=== PATIENT | female | born 1950 | race Caucasian/White ===

== ENCOUNTER 2021-09-14 10:03 | Emergency (ER) | payer OTHER, MEDICAID ==
[~2021-09-14] VITALS: Ht 152.4 cm; Wt 85.3 kg
[2021-09-14 10:17] VITALS: BP_SYST 133
[2021-09-14] MEDS ORDERED: METOCLOPRAMIDE HCL 10 MG/2 ML VIAL IVP ONE (11:30)
[2021-09-14] MEDS ORDERED: KETOROLAC TROMETHAMINE 30 MG VIAL IVP ONE (11:30)
[2021-09-14] MEDS ORDERED: NACL 0.9% 1,000 ML IV ONE ×2 (11:30)
[2021-09-14] MEDS ORDERED: ONDANSETRON HCL 4 MG/2 ML VIAL IVP ONE (11:30)
[2021-09-14] MEDS ORDERED: cefTRIAXone 1 GM in D5W 50 ML IV ONE (11:30)
[2021-09-14 11:33] LABS: BILIRUBIN,URINE NEGATIVE (NEGATIVE); BLOOD, URINE 1+ (NEGATIVE); CLARITY/URINE CLEAR (CLEAR); COLOR,URINE YELLOW (YELLOW); GLUCOSE,URINE NEGATIVE (NEGATIVE); KETONES,URINE NEGATIVE (NEGATIVE); LEUKOCYTE ESTERASE ,URINE NEGATIVE (NEGATIVE); NITRITE, URINE NEGATIVE (NEGATIVE); PROTEIN URINE NEGATIVE (NEGATIVE); UROBILINOGEN,URINE 0.2 (0.2-1.0)
[2021-09-14 11:44] LABS: BACTERIA,URINE FEW /HPF (None Seen); WBC,URINE 0-3 /HPF (0-3)
[2021-09-14 11:51] LABS: BASOPHILS # (AUTO) 0.1 K/uL (0.0-0.2); BASOPHILS % (AUTO) 1.2 % (0.0-2.0); EOSINOPHILS # (AUTO) 0.4 K/uL (0.0-0.4); EOSINOPHILS % (AUTO) 5.9 % (0.0-4.0); HEMATOCRIT 37.4 % (36-48); LYMPHOCYTES % (AUTO) 27.8 % (20.5-51.5); MEAN CORPUSCULAR HEMOGLOBIN 27 pg (27-31); MEAN CORPUSCULAR HGB CONC 32 % (32-36); MEAN CORPUSCULAR VOLUME 83 fL (79.0-98.0); MONOCYTES # (AUTO) 0.4 K/uL (0.0-1.0); MONOCYTES % (AUTO) 5.8 % (1.7-9.3); NEUTROPHILS # (AUTO) 4.3 K/uL (1.8-7.7); NEUTROPHILS % (AUTO) 59.3 % (40.0-70.0); PLATELET COUNT (AUTO) 180 K/uL (130-430); RED CELL DISTRIBUTION WIDTH 14.9 % (9.0-15.0); WHITE BLOOD COUNT (AUTO) 7.3 K/uL (4.8-10.8)
[2021-09-14 12:03] LABS: CALCIUM 8.7 mg/dL (8.4-11.0); CREATININE 0.54 mg/dL (0.55-1.30); POTASSIUM 4.1 mmol/L (3.5-5.1)
[2021-09-14] MEDS ORDERED: cefTRIAXone 1 GM VIAL ONE (12:05)
[2021-09-14 12:08] LABS: ALBUMIN 3.3 g/dL (3.4-4.8); TOTAL BILIRUBIN 0.4 mg/dL (0.0-1.0)
[2021-09-14] MEDS ORDERED: CEFI200T PO (14:26)
[2021-09-14] MEDS ORDERED: ONDA-8 TL (14:26)
[2021-09-14 15:13] VITALS: BP_SYST 144
== END 2021-09-14 15:13 | disposition home or self-care (01) ==
LOC: SED 10:03
DX: N12 Tubulo-interstitial nephritis, not specified as acute or chronic (principal); Z79.899 Other long term (current) drug therapy
CPT/HCPCS: 36415; 74176; 76376; 80053; 81000; 83605; 85025; 87040; 96365; 96375; 99284; J0696; J1885; J2405; J2765

== ENCOUNTER 2021-09-22 09:40 | Emergency (ER) | payer OTHER, MEDICAID ==
[~2021-09-22] VITALS: Ht 157.5 cm; Wt 85.3 kg
[2021-09-22 09:40] VITALS: BP_SYST 139
[~2021-09-22 09:40] MED LIST: CEFI200T PO; ONDA-8 TL
[2021-09-22] MEDS: NACL 0.9% 1,000 ML IV ONE (10:18)
[2021-09-22] MEDS: KETOROLAC TROMETHAMINE 30 MG VIAL IVP ONE (10:19)
[2021-09-22 10:32] LABS: HEMOGLOBIN 13.3 g/dL (12.0-16.0); MEAN CORPUSCULAR HGB CONC 33 % (32-36); WHITE BLOOD COUNT (AUTO) 7.3 K/uL (4.8-10.8)
[2021-09-22 10:43] LABS: CALCIUM 7.8 mg/dL (8.4-11.0); CREATININE 0.63 mg/dL (0.55-1.30); POTASSIUM 3.3 mmol/L (3.5-5.1)
[2021-09-22 10:47] LABS: ALBUMIN 3.4 g/dL (3.4-4.8); TOTAL BILIRUBIN 0.8 mg/dL (0.0-1.0)
[2021-09-22] MEDS: ACETAMINOPHEN 500 MG TABLET PO ONE (10:47)
[2021-09-22] MEDS ORDERED: SERT50TA PO (10:51)
[2021-09-22] MEDS ORDERED: OMEP20CA15 PO (10:51)
[2021-09-22] MEDS ORDERED: LEVO25TA7 PO (10:51)
[2021-09-22 11:03] LABS: BASOPHILS % (AUTO) 0.2 % (0.0-2.0); EOSINOPHILS % (AUTO) 0.1 % (0.0-4.0); HEMATOCRIT 40.4 % (36-48); LYMPHOCYTES # (AUTO) 1.1 K/uL (1.0-5.5); LYMPHOCYTES % (AUTO) 14.7 % (20.5-51.5); MEAN CORPUSCULAR HEMOGLOBIN 27 pg (27-31); MEAN CORPUSCULAR VOLUME 82 fL (79.0-98.0); MONOCYTES # (AUTO) 0.3 K/uL (0.0-1.0); MONOCYTES % (AUTO) 4.3 % (1.7-9.3); NEUTROPHILS # (AUTO) 5.9 K/uL (1.8-7.7); NEUTROPHILS % (AUTO) 80.7 % (40.0-70.0); PLATELET COUNT (AUTO) 190 K/uL (130-430); RED BLOOD CELL COUNT(AUTO) 4.96 MIL/uL (4.2-6.2); RED CELL DISTRIBUTION WIDTH 14.7 % (9.0-15.0)
[2021-09-22 11:20] LABS: BILIRUBIN,URINE 1+ (NEGATIVE); BLOOD, URINE 3+ (NEGATIVE); CLARITY/URINE CLEAR (CLEAR); COLOR,URINE YELLOW (YELLOW); GLUCOSE,URINE NEGATIVE (NEGATIVE); KETONES,URINE NEGATIVE (NEGATIVE); LEUKOCYTE ESTERASE ,URINE NEGATIVE (NEGATIVE); NITRITE, URINE NEGATIVE (NEGATIVE); PH,URINE 6.5 (5.0-8.0); PROTEIN URINE 1+ (NEGATIVE); UROBILINOGEN,URINE 0.2 (0.2-1.0)
[2021-09-22 12:21] LABS: BACTERIA,URINE RARE /HPF (None Seen); RBC,URINE 20-50 /HPF (0-3); WBC,URINE 0-3 /HPF (0-3)
[2021-09-22] MEDS ORDERED: METR-154 PO (12:42)
[2021-09-22] MEDS ORDERED: DICY10SO PO ×2 (12:43→12:44)
[2021-09-22] MEDS ORDERED: LOM2.5 PO (12:45)
[2021-09-22] MEDS: fentaNYL CITRATE/PF 100 MCG/2 ML AMP IVP ONE (12:48)
[2021-09-22] MEDS: metroNIDAZOLE 500 mg/NS 100 ML IV ONE (12:48)
[2021-09-22 13:36] VITALS: BP_SYST 144
[2021-09-23] MEDS ORDERED: HYDR-3917 PO (12:54)
== END 2021-09-22 13:37 | disposition home or self-care (01) ==
LOC: SED 09:40
DX: K52.9 Noninfective gastroenteritis and colitis, unspecified (principal); Z20.822 Contact with and (suspected) exposure to COVID-19; Z79.899 Other long term (current) drug therapy
CPT/HCPCS: 36415; 71045; 74176; 76376; 80053; 81000; 83605; 83690; 85025; 87040; 87086; 87426; 93005; 96361; 96365; 96375; 99285; J1885; J3010; J3490; J7030

== ENCOUNTER 2021-09-23 11:40 | Emergency (ER) | payer OTHER, MEDICAID ==
[~2021-09-23] VITALS: Ht 157.5 cm; Wt 86.2 kg
[~2021-09-23 11:40] MED LIST changes: +DICY10SO PO; +LEVO25TA7 PO; +LOM2.5 PO; +METR-154 PO; +OMEP20CA15 PO; +SERT50TA PO
[2021-09-23 12:04] VITALS: BP_SYST 117
--- NOTE | 2021-09-23 12:05 | NUR ---
patient alert, oriented x4 returns to er for follow up per daughter. vital stable, Dr Bradshaw notified.
[2021-09-23] MEDS ORDERED: HYDR-3917 PO (12:54)
[2021-09-23 13:29] VITALS: BP_SYST 110
--- NOTE | 2021-09-23 13:33 | NUR ---
Patient given written and verbal discharge instructions and verbalizes understanding. ER MD discussed with patient the results and treatment provided. Patient in stable condition. Rx of given. Patient educated on pain management and to follow up with PMD. Pain Scale [0/10]. Opportunity for questions provided and answered. Medication side effect fact sheet provided.
== END 2021-09-23 13:29 | disposition home or self-care (01) ==
LOC: SED 11:40
DX: K52.9 Noninfective gastroenteritis and colitis, unspecified (principal); Z79.899 Other long term (current) drug therapy
CPT/HCPCS: 99282